=== PATIENT | male | born 1990 | race Caucasian/White ===

== ENCOUNTER 2016-07-11 00:03 | Emergency (ER) | payer MEDICARE, MEDICAID ==
[2016-07-11] MEDS ORDERED: predniSONE 20 MG Tab PO ONE (01:14)
[2016-07-11] MEDS ORDERED: Cetirizine 10 MG Tab PO ONE (01:15)
[2016-07-11 01:34] VITALS: BP 114/72
--- NOTE | 2016-07-12 04:46 | ER ---
DATE SEEN: 07/11/2016 TIME SEEN: The patient was seen at 0020 hours. CHIEF COMPLAINT: Headache, tiredness, lightheadedness, sluggishness, depersonalization, hallucinations, and schizophrenia. HISTORY OF PRESENT ILLNESS: This 26-year-old who lives at home complains of recent increase in headaches, sluggishness, sleeping 18-22 hours a day, "I keep getting sleepy and he perseverated four times at least. I keep getting "sleep induction." He sleeps most of the time. He lives at home with his mother. His sister is with him now. His day is spent watching cartoons and playing with his dog. In the past, he used to watch Walking , but he got bad dreams, consequently stopped watching it. Now he is watching cartoons. Sometimes he has recurrent dreams that people are infected with a virus and they are involved with violence. He does not feel like he is going to be persecuted or killed by these people who are infected by the virus (very similar to the Walking sequels). He has felt mildly cold. He is off Clozaril. He has lost small amount of weight. Denies fever, chills, cough, abdominal pain, chest pain, irregular heartbeats, falling, compromise in his vision. He has occasional headaches. Patient's treatment for schizophrenia has resulted in discontinuation of Clozaril (drug side effects). CURRENT MEDICATIONS: 1. Risperidone 4 mg at bedtime. 2. Clonazepam 0.5 mg q.6 hours. 3. Lorazepam 1.5 mg b.i.d. 4. Prozac 20 mg at bedtime. 5. Aripiprazole 15 mg daily. 6. Venlafaxine (Effexor XR) 75 mg daily. 7. Topiramate 100 mg b.i.d. 8. Prazosin 2 mg at bedtime (he states the prazosin decreases his dreams). 9. Montelukast (Singulair) 10 mg daily. 10.Levothyroxine 125 mcg daily. REVIEW OF SYSTEMS: Negative except for as noted above, mostly psychiatric history. HEENT: He has had marked congestion and denies sore throat. He has mild sinus pressure. PSYCHIATRIC: He has had PTSD, at one time he was seeing things and vicious people and he used to watch horror movies. He was addicted to horror movies, watched specifically even Walking . Now he has resisted from watching these program because of the side effect of the medicine and just watch cartoons and [place] animation cartoons. Sometimes, he does not experience upper body sensation or depersonalization recently. He notes it is very hard for him to get up in the morning. He does sometime go to bed, last night he went to bed, but really did not go to sleep until about 0200 hours and he woke at 1800 hours the following day, he had about approximately 16 hours of sleep. Patient denies constipation. Denies hair loss. Denies temperature intolerance. PHYSICAL EXAM: VITAL SIGNS: Blood pressure 126/70, heart rate 91, respirations 18, oxygen saturation 99%, temperature is 36.8 degrees centigrade. Weight is 113.398 kg. BMI 30.1 kg/m2. GENERAL: Slightly somnolent, slow talking, overweight with body odor (suggesting he has not showered for several days). HEENT: PERRLA intact. Pharynx without abnormality. Mucosa is normal appearance, mild macroglossia. Examination of the nasal turbinates, they are markedly boggy and they almost move juxtaposition of the septal because of the edema of the nasal turbinates, moderate shiners. NECK: No thyromegaly or masses in neck. No cervical adenopathy. LUNGS: Without rales, rhonchi, or wheezes. HEART: S1, S2. No murmur. Sinus rhythm. ABDOMEN: Soft. No guarding. No abdominal discomfort. NEURO: Deep tendon reflexes in upper and lower extremities, symmetrical, but hypoactive lower extremities. Cranial nerves 2 through 12 intact. Oriented x3. Gait intact. Muscle strength intact. Romberg negative. No past pointing. No pronator drift. No decreased strength in upper or lower extremities. DERMIS: Negative. ASSESSMENT: 1. History of excessive dreams that were violent that seemed to be improved with prazosin based on his history. 2. Compliant in taking his medicine, however, he has not seen a psychiatrist for a year. 3. He had used telepsychiatry in the past after he had been seen at [place], but it has been a while since that occurred. 4. Allergic sinusitis and rhinitis. 5. Increased sleep. 6. Schizophrenia, is not on Clozaril, probably the latter help but it probably also had hemopoietic side effects and it was discontinued. 7. He is on a multiplicity of psychiatric medicines and they could be causing problems and needs review of these medicines. PLAN: 1. Treat with prednisone 10 mg daily and then 10 mg every other day for 3 more doses. 2. Follow up with doctor in a week. Zyrtec 10 mg one tablet daily, 30 tablets prescribed. 3. Patient needs further psychiatric evaluation. It has been a while since he has seen his psychiatrist. His medications need to be re-evaluated. /[id number] PRADEEP/JOSIAH
== END 2016-07-11 01:30 | disposition home or self-care (01) ==
LOC: FB.ED 00:03
DX: J30.9 Allergic rhinitis, unspecified (principal); F20.9 Schizophrenia, unspecified; G47.10 Hypersomnia, unspecified
CPT/HCPCS: 36415; 80053; 81001; 84443; 85025; 99283; A9270; 99284

== ENCOUNTER 2016-09-23 01:04 | Emergency (ER) | payer MEDICARE, MEDICAID ==
[2016-09-23 01:51] LABS: ACETAMINOPHEN < 10 ug/mL (10-30)
[2016-09-23 04:46] VITALS: BP 128/60
--- NOTE | 2016-09-23 16:27 | ER ---
DATE SEEN: 09/23/2016 REASON FOR VISIT: Anger. HISTORY OF PRESENT ILLNESS: Po is a 26-year-old male brought in by his sister. Tonight, he got so angry that the sister was worried about what he can do. Mr. Lawrence has a history of schizoaffective disorder, Asperger's disorder, PTSD, and schizophrenia. She feels that his medications have not been working well in the last few weeks and would like him to be admitted to an inpatient facility. Mr. Lawrence denies any suicidal or homicidal ideation. He denies hearing voices. He claims to be sleeping well at night. Tonight, he states that he was frustrated because of not being able to get wi-fi. CURRENT MEDICATIONS: 1. Effexor. 2. Topamax. 3. Risperdal 4 mg a day. 4. Prazosin. 5. Benztropine. 6. Clonazepam. 7. Levothyroxine. ALLERGIES: He is allergic to pollen extracts and sulfa drugs. SOCIAL HISTORY: He denies use of drugs, alcohol, or tobacco. PHYSICAL EXAMINATION: GENERAL: He is pale, but not in any cardiopulmonary distress. VITAL SIGNS: His blood pressure is normal. His pulse is 69 and temp 97.4. ENT: Negative. NECK: Supple. MENTAL STATUS: He is alert. He answers questions well. No signs of denys. He denies homicidal or suicidal ideation convincingly. NEUROLOGIC: No focal findings. Cranial nerves 2 through 12 are grossly intact. LABORATORY DATA: Including acetaminophen and urine drug screen were all negative. Electrolytes were normal. IMPRESSION: 1. Schizophrenia. 2. Post-traumatic stress disorder. PLAN: We initiated a call and transfer to [facility], but after review of the pertinent information, they declined to take the patient as an inpatient. We released the patient after a few hours and advised the sister to take him directly tomorrow to the [facility] for an outpatient evaluation. /[id number] TOMA/JOSIAH
== END 2016-09-23 04:43 | disposition home or self-care (01) ==
LOC: FB.ED 01:04
DX: F25.9 Schizoaffective disorder, unspecified (principal); F43.10 Post-traumatic stress disorder, unspecified; F84.5 Asperger's syndrome; Z79.899 Other long term (current) drug therapy; Z88.2 Allergy status to sulfonamides; Z91.048 Other nonmedicinal substance allergy status
CPT/HCPCS: 36415; 80053; 80305; 81001; 84443; 85025; 99283; G0480

== ENCOUNTER 2016-12-07 03:40 | Emergency (ER) | payer MEDICARE, MEDICAID ==
[2016-12-07 03:53] VITALS: BP 124/68
[2016-12-07] MEDS ORDERED: Polyethylene Glycol 3350 Powder 17 GM Packet PO ONE (04:24)
--- NOTE | 2016-12-07 04:29 | EDM.PDOC ---
ED HPI GENERAL MEDICAL PROBLEM - General Chief Complaint: General Stated Complaint: BLOOD ON HIS RECTUM Time Seen by Provider: 12/07/16 04:15 Source of Information: Reports: Patient History Limitations: Reports: No Limitations - History of Present Illness INITIAL COMMENTS - FREE TEXT/NARRATIVE: 26 yo male first noticed blood with BM's about a week ago. Has not consulted his primary. Tonight the "whole toilet was full of blood". There is no pain with defecation. Had one dizzy spell since this problem began. Denies a hx of constipation. Is not on any anticoagulants. Onset: Gradual Onset Date: 11/30/16 Duration: Day(s):, Getting Worse Quality: Reports: Other (no pain) Severity: Moderate Improves with: Reports: None Worsens with: Reports: Other (BM's/defecation) Context: Reports: Other (unknown) Associated Symptoms: Reports: No Other Symptoms Treatments CORPORATE ATTORNEY: Reports: Other (see below) (none) - Related Data Allergies Allergy/AdvReac Type Severity Reaction Status Date / Time Sulfa (Sulfonamide Allergy Mild Fever Verified 09/23/16 01:30 Antibiotics) pollen extracts Allergy Swollen Verified 09/23/16 01:30 Eyes Home Meds: Home Meds Levothyroxine 125 mcg PO ACBRK 03/25/14 [History] Montelukast [Singulair] 10 mg PO DAILY 03/25/14 [History] Topiramate 100 mg PO BID 03/25/14 [History] ARIPiprazole [Aripiprazole] 15 mg PO DAILY 12/26/15 [History] LORazepam 1.5 tab PO BID 12/26/15 [History] Prazosin HCl [Prazosin] 2 mg PO BEDTIME 12/26/15 [History] Venlafaxine [Effexor XR] 75 mg PO DAILY 12/26/15 [History] Cetirizine [ZyrTEC] 10 mg PO DAILY #30 tab 07/11/16 [Rx] ClonazePAM [KlonoPIN] 0.5 mg PO Q6HR PRN 07/11/16 [History] risperiDONE 4 mg PO BEDTIME 07/11/16 [History] Albuterol Sulfate [Ventolin Hfa] 1 puff INH ASDIRECTED PRN 09/23/16 [History] Benztropine [Cogentin] 0.5 mg PO BID 09/23/16 [History] hydrOXYzine HCl [Atarax] 50 mg PO ASDIRECTED PRN 09/23/16 [History] Past Medical History Respiratory History: Reports: Asthma, Bronchitis, Recurrent, Other (See Below) Other Respiratory History: Allergies. Psychiatric History: Reports: Anxiety, Bipolar, Depression, Hallucinations, Schizophrenia Other Psychiatric History: BORDERLINE DISORDER Endocrine/Metabolic History: Reports: Hypothyroidism Social & Family History - Family History Family Medical History: Noncontributory - Tobacco Use Smoking Status *Q: Never Smoker - Caffeine Use Caffeine Use: Reports: None - Alcohol Use Days Per Week of Alcohol Use: 0 - Recreational Drug Use Recreational Drug Use: No ED ROS GENERAL - Review of Systems Review Of Systems: See Below Constitutional: Reports: No Symptoms HEENT: Reports: No Symptoms Respiratory: Reports: No Symptoms Cardiovascular: Reports: No Symptoms Endocrine: Reports: No Symptoms GI/Abdominal: Reports: Bloody Stool, Hematochezia. Denies: Abdominal Pain, Black Stool, Constipation, Diarrhea, Decreased Appetite, Distension, Melena, Nausea, Vomiting : Reports: No Symptoms Musculoskeletal: Reports: No Symptoms Skin: Reports: No Symptoms Neurological: Reports: No Symptoms Psychiatric: Reports: No Symptoms ED EXAM, GENERAL - Physical Exam Exam: See Below Exam Limited By: No Limitations General Appearance: Alert, WD/WN, No Apparent Distress Eye Exam: Bilateral Eye: Normal Inspection Ears: Normal External Exam, Hearing Grossly Normal Ear Exam: Bilateral Ear: Auricle Normal, Canal Normal Nose: Normal Inspection, Normal Mucosa, No Blood Throat/Mouth: Normal Inspection, Normal Lips, Normal Oropharynx, Normal Voice, No Airway Compromise Head: Atraumatic, Normocephalic Neck: Normal Inspection, Supple Respiratory/Chest: No Respiratory Distress, Lungs Clear, Normal Breath Sounds, No Accessory Muscle Use Cardiovascular: Regular Rate, Rhythm, No Edema GI/Abdominal: Normal Bowel Sounds, Soft, Non-Tender, No Distention Back Exam: Normal Inspection. No: CVA Tenderness (R), CVA Tenderness (L) Extremities: Normal Inspection, Normal Range of Motion, Non-Tender, No Pedal Edema Neurological: Alert, Oriented, CN II-XII Intact, Normal Cognition, No Motor/ Sensory Deficits Psychiatric: Normal Affect, Normal Mood Skin Exam: Warm, Dry, Intact, Normal Color, No Rash Lymphatic: No Adenopathy Course - Vital Signs Text/Narrative:: Orthostatic vitals-borderline Last Recorded V/S: Last Vital Signs Temp 36.8 C 12/07/16 03:50 Pulse 94 12/07/16 03:50 Resp 16 12/07/16 03:50 BP 124/68 12/07/16 03:50 Pulse Ox 99 12/07/16 03:50 - Orders/Labs/Meds Orders: Active Orders 24 hr Category Date Time Status Orthostatic Vital Signs [RC] ASDIRECTED Care 12/07/16 04:23 Ordered HGB [HEMOGLOBIN] [HEME] Stat Lab 12/07/16 04:23 Ordered Polyethylene Glycol 3350 [MiraLAX] Med 12/07/16 04:24 Once 17 gm PO ONETIME ONE Departure - Departure Time of Disposition: 05:01 Disposition: Home, Self-Care 01 Condition: Good Clinical Impression: Bleeding hemorrhoids - Discharge Information Referrals: Thee Díaz MD [Primary Care Provider] - - My Orders Last 24 Hours: My Active Orders 12/07/16 04:23 Orthostatic Vital Signs [RC] ASDIRECTED HGB [HEMOGLOBIN] [HEME] Stat 12/07/16 04:24 Polyethylene Glycol 3350 [MiraLAX] 17 gm PO ONETIME ONE - Assessment/Plan Last 24 Hours: My Active Orders 12/07/16 04:23 Orthostatic Vital Signs [RC] ASDIRECTED HGB [HEMOGLOBIN] [HEME] Stat 12/07/16 04:24 Polyethylene Glycol 3350 [MiraLAX] 17 gm PO ONETIME ONE
== END 2016-12-07 05:05 | disposition home or self-care (01) ==
LOC: FB.ED 03:40
DX: K64.9 Unspecified hemorrhoids (principal); E03.9 Hypothyroidism, unspecified; J45.909 Unspecified asthma, uncomplicated; F32.9 Major depressive disorder, single episode, unspecified; Z88.2 Allergy status to sulfonamides; Z88.0 Allergy status to penicillin; Z79.899 Other long term (current) drug therapy
CPT/HCPCS: 36415; 85018; 99282; A9270; 99284

== ENCOUNTER 2016-12-24 15:06 | Emergency (ER) | payer MEDICARE, MEDICAID ==
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
[2016-12-24] MEDS ORDERED: ClonazePAM 1 MG Tab PO ONE (19:56)
[2016-12-24] MEDS ORDERED: ClonazePAM 1 MG Tab PO STA (19:56)
[2016-12-24 22:07] VITALS: BP 121/69
== END 2016-12-24 20:20 | disposition home or self-care (01) ==
LOC: FB.ED 15:06
DX: R45.850 Homicidal ideations (principal); F99 Mental disorder, not otherwise specified; J45.909 Unspecified asthma, uncomplicated; F41.9 Anxiety disorder, unspecified; E03.9 Hypothyroidism, unspecified; Z88.2 Allergy status to sulfonamides; Z91.048 Other nonmedicinal substance allergy status
CPT/HCPCS: 36415; 80048; 80305; 81001; 85027; 99284; A9270; G0480

== ENCOUNTER 2016-12-25 16:21 | Emergency (ER) | payer MEDICARE, MEDICAID ==
--- NOTE | 2016-12-25 16:39 | EDM.PDOCBH ---
ED HPI GENERAL MEDICAL PROBLEM - General Chief Complaint: Behavioral/Psych Stated Complaint: SUICIDAL IDEATION Time Seen by Provider: 12/25/16 16:30 Source of Information: Reports: Patient, Old Records History Limitations: Reports: No Limitations - History of Present Illness INITIAL COMMENTS - FREE TEXT/NARRATIVE: 26 yo male was seen here in the ER last evening for homicidal ideation. He was cleared medically and psych felt he was no longer a threat and he went home. Today he returns with suicidal ideation. Does not have a plan. Has not yet done anything in an attempt to cause self-harm. Has been hospitalized many times in his life for psychiatric reasons. Is scheduled to see a counselor later this month for the first time, does not have one now. Onset: Today Onset Date: 12/25/16 Onset Time: 08:30 Duration: Hour(s):, Constant Severity: Moderate Improves with: Reports: None Worsens with: Reports: None Context: Reports: Other (Long hx of mental health issues.) Associated Symptoms: Reports: No Other Symptoms Treatments ENERGY BROKER: Reports: Other (see below) (Took a clonazepam that made him sleep for several hrs, after awakening still feels the same. ) throat Pain Score (Numeric/FACES): 6 - Related Data Allergies Allergy/AdvReac Type Severity Reaction Status Date / Time Sulfa (Sulfonamide Allergy Mild Fever Verified 12/25/16 16:38 Antibiotics) pollen extracts Allergy Swollen Verified 12/25/16 16:38 Eyes Home Meds: Home Meds Levothyroxine 175 mcg PO ACBRK 03/25/14 [History] Montelukast [Singulair] 10 mg PO DAILY 03/25/14 [History] Topiramate 100 mg PO BID 03/25/14 [History] Prazosin HCl [Prazosin] 2 mg PO BEDTIME 12/26/15 [History] Venlafaxine [Effexor XR] 150 mg PO DAILY 12/26/15 [History] risperiDONE 4 mg PO BEDTIME 07/11/16 [History] Benztropine [Cogentin] 0.5 mg PO BID 09/23/16 [History] Past Medical History Respiratory History: Reports: Asthma, Bronchitis, Recurrent, Other (See Below) Other Respiratory History: Allergies. Psychiatric History: Reports: Anxiety, Bipolar, Depression, Hallucinations, Schizophrenia Other Psychiatric History: BORDERLINE DISORDER Endocrine/Metabolic History: Reports: Hypothyroidism Social & Family History - Family History Family Medical History: Noncontributory - Tobacco Use Smoking Status *Q: Never Smoker - Caffeine Use Caffeine Use: Reports: None - Alcohol Use Days Per Week of Alcohol Use: 0 - Recreational Drug Use Recreational Drug Use: No ED ROS GENERAL - Review of Systems Review Of Systems: See Below Constitutional: Reports: No Symptoms HEENT: Reports: No Symptoms Respiratory: Reports: No Symptoms Cardiovascular: Reports: No Symptoms GI/Abdominal: Reports: No Symptoms : Reports: No Symptoms Musculoskeletal: Reports: No Symptoms Skin: Reports: No Symptoms Neurological: Reports: No Symptoms Psychiatric: Reports: Depression, Suicidal Ideation Hematologic/Lymphatic: Reports: No Symptoms ED EXAM, BEHAVIORAL HEALTH - Physical Exam Exam: See Below Exam Limited By: No Limitations General Appearance: Alert, WD/WN, No Apparent Distress Eye Exam: Bilateral Eye: Normal Inspection Ears: Normal External Exam, Normal Canal, Hearing Grossly Normal, Normal TMs Nose: Normal Inspection, Normal Mucosa, No Blood Throat/Mouth: Normal Inspection, Normal Lips, Normal Teeth, Normal Oropharynx, Normal Voice, No Airway Compromise Head: Atraumatic, Normocephalic Neck: Normal Inspection, Supple, Non-Tender Respiratory/Chest: No Respiratory Distress, Lungs Clear, Normal Breath Sounds, No Accessory Muscle Use Cardiovascular: Regular Rate, Rhythm, No Edema GI/Abdominal: Normal Bowel Sounds, Soft, Non-Tender, No Distention Back Exam: Normal Inspection. No: CVA Tenderness (R), CVA Tenderness (L) Extremities: Normal Inspection, Normal Range of Motion, Non-Tender, No Pedal Edema Neurological: Alert, Normal Mood/Affect, CN II-XII Intact, Normal Cognition, No Motor/Sensory Deficits, Oriented x 3 Psychiatric: Alert, Normal Affect, Normal Cognition, Flat Affect, Suicidal Thoughts. No: Suicidal Plan Skin Exam: Warm, Dry, Intact, Normal color, No rash COURSE, BEHAVIORAL HEALTH COMP - Course Vital Signs: Last Vital Signs Temp 36.3 C 12/25/16 19:36 Pulse 65 12/25/16 19:36 Resp 18 12/25/16 19:36 BP 113/71 12/25/16 19:36 Pulse Ox 99 12/25/16 19:36 Orders, Labs, Meds: Laboratory Tests 12/25/16 12/25/16 12/25/16 Range/Units 16:50 16:50 16:50 TSH, Ultra Sensitive 1.29 (0.4-5.5) nlU/mL Salicylates < 4.0 L (5.0-25.0) mg/dL Urine Opiates Screen (NEGATIVE) Ur Oxycodone Screen (NEGATIVE) Ur Propoxyphene Screen (NEGATIVE) Acetaminophen < 10 L (10-30) ug/mL Ur Barbituates Screen (NEGATIVE) Ur Tricyclics Screen (NEGATIVE) Ur Phencyclidine Scrn (NEGATIVE) Ur Amphetamine Screen (NEGATIVE) Urine MDMA Screen (NEGATIVE) U Benzodiazepines Scrn (NEGATIVE) U Cocaine Metab Screen (NEGATIVE) U Marijuana (THC) Screen (NEGATIVE) Ethyl Alcohol < 0.01 (<0.01) % 12/25/16 Range/Units 17:04 TSH, Ultra Sensitive (0.4-5.5) nlU/mL Salicylates (5.0-25.0) mg/dL Urine Opiates Screen Negative (NEGATIVE) Ur Oxycodone Screen Negative (NEGATIVE) Ur Propoxyphene Screen Negative (NEGATIVE) Acetaminophen (10-30) ug/mL Ur Barbituates Screen Negative (NEGATIVE) Ur Tricyclics Screen Negative (NEGATIVE) Ur Phencyclidine Scrn Negative (NEGATIVE) Ur Amphetamine Screen Negative (NEGATIVE) Urine MDMA Screen Negative (NEGATIVE) U Benzodiazepines Scrn Negative (NEGATIVE) U Cocaine Metab Screen Negative (NEGATIVE) U Marijuana (THC) Screen Negative (NEGATIVE) Ethyl Alcohol (<0.01) % Departure - Departure Time of Disposition: 23:50 Disposition: DC/Tfer to Psych Hosp/Unit 65 Condition: Good Clinical Impression: Suicidal ideation - Discharge Information Referrals: Thee Díaz MD [Primary Care Provider] - Forms: ED Department Discharge
[2016-12-25 17:13] LABS: ACETAMINOPHEN < 10 ug/mL (10-30)
[2016-12-25 19:37] VITALS: BP 113/71
== END 2016-12-25 23:35 ==
LOC: FB.ED 16:21
DX: R45.851 Suicidal ideations (principal); E03.9 Hypothyroidism, unspecified; J45.909 Unspecified asthma, uncomplicated; F41.9 Anxiety disorder, unspecified; F32.9 Major depressive disorder, single episode, unspecified; Z88.8 Allergy status to other drugs, medicaments and biological substances; Z88.2 Allergy status to sulfonamides; Z79.899 Other long term (current) drug therapy
CPT/HCPCS: 36415; 80305; 84443; 99285; G0480

== ENCOUNTER 2019-02-21 19:49 | Emergency (ER) | payer MEDICAID, MEDICARE ==
[2019-02-21] MEDS: Acetaminophen 500 MG Tab PO ONE (20:24)
--- NOTE | 2019-02-21 20:24 | EDM.PDOC ---
ED HPI GENERAL MEDICAL PROBLEM - General Chief Complaint: Headache Stated Complaint: MIGRAINES Time Seen by Provider: 02/21/19 20:10 Source of Information: Reports: Patient, Family History Limitations: Reports: No Limitations - History of Present Illness INITIAL COMMENTS - FREE TEXT/NARRATIVE: Patient presented to the ED because of headache over the bifrontal area, throbbing,10/10 with some photophobia. He has a h/o migraine and usually takes aleve but this time his headache never went away. he denies any fever,neck stiffness. headache Pain Score (Numeric/FACES): 10 - Related Data Allergies Allergy/AdvReac Type Severity Reaction Status Date / Time Sulfa (Sulfonamide Allergy Mild Fever Verified 12/25/16 16:38 Antibiotics) pollen extracts Allergy Swollen Verified 12/25/16 16:38 Eyes Home Meds: Home Meds Levothyroxine 175 mcg PO ACBRK 03/25/14 [History] Montelukast [Singulair] 10 mg PO DAILY 03/25/14 [History] Topiramate 100 mg PO BID 03/25/14 [History] Prazosin HCl [Prazosin] 2 mg PO BEDTIME 12/26/15 [History] Venlafaxine [Effexor XR] 150 mg PO DAILY 12/26/15 [History] risperiDONE 4 mg PO BEDTIME 07/11/16 [History] Benztropine [Cogentin] 0.5 mg PO BID 09/23/16 [History] Meclizine [Antivert] 50 mg PO Q6H PRN #30 tab 02/21/19 [Rx] Past Medical History HEENT History: Reports: None Cardiovascular History: Reports: None Respiratory History: Reports: Asthma, Bronchitis, Recurrent, Other (See Below) Other Respiratory History: Allergies. Gastrointestinal History: Reports: None Genitourinary History: Reports: None Musculoskeletal History: Reports: None Neurological History: Reports: Seizure Other Neuro History: mother states that patient has a seizure disorder since he was 3-4 years old. Had seizure episode couple months ago. Psychiatric History: Reports: Anxiety, Bipolar, Depression, Hallucinations, Schizophrenia Other Psychiatric History: BORDERLINE DISORDER Endocrine/Metabolic History: Reports: Hypothyroidism Hematologic History: Reports: None Immunologic History: Reports: None Oncologic (Cancer) History: Reports: None Dermatologic History: Reports: None - Infectious Disease History Infectious Disease History: Reports: None - Past Surgical History Head Surgeries/Procedures: Reports: None Male Surgical History: Reports: None Social & Family History - Family History Family Medical History: Noncontributory - Caffeine Use Caffeine Use: Reports: None ED ROS GENERAL - Review of Systems Review Of Systems: See Below Constitutional: Reports: No Symptoms HEENT: Reports: No Symptoms Respiratory: Reports: No Symptoms Cardiovascular: Reports: No Symptoms Endocrine: Reports: No Symptoms GI/Abdominal: Reports: No Symptoms : Reports: No Symptoms Musculoskeletal: Reports: No Symptoms Skin: Reports: No Symptoms Neurological: Reports: Headache Hematologic/Lymphatic: Reports: No Symptoms, Other - Physical Exam Exam: See Below Exam Limited By: No Limitations General Appearance: Alert, WD/WN, No Apparent Distress Eye Exam: Bilateral Eye: PERRL Ears: Normal External Exam, Normal Canal, Hearing Grossly Normal Nose: Normal Inspection, Normal Mucosa, No Blood Throat/Mouth: Normal Inspection, Normal Lips, Normal Teeth, Normal Gums Head Exam: Atraumatic, Normocephalic Neck: Normal Inspection, Supple, Non-Tender, Full Range of Motion Respiratory/Chest: No Respiratory Distress, Lungs Clear, Normal Breath Sounds, No Accessory Muscle Use, Chest Non-Tender Cardiovascular: Normal Peripheral Pulses, Regular Rate, Rhythm, No Edema, No Gallop, No JVD, No Murmur, No Rub GI/Abdominal: Normal Bowel Sounds, Soft, Non-Tender, No Organomegaly, No Distention, No Abnormal Bruit Neuro Exam (Abbreviated): Alert, Oriented, CN II-XII Intact, Normal Cognition, Normal Gait, Normal Reflexes, No Motor/Sensory Deficits Course - Vital Signs Text/Narrative:: toradol 60 mg IM x1 imitrex 6 mg SC x1 percocet 5/325, 2 po x1 dose Last Recorded V/S: Last Vital Signs Temp 36.7 C 02/21/19 22:00 Pulse 74 02/21/19 22:00 Resp 16 02/21/19 22:00 BP 142/94 H 02/21/19 22:00 Pulse Ox 100 02/21/19 22:00 - Orders/Labs/Meds Meds: Medications Discontinued Medications Generic Name Dose Route Start Last Admin Trade Name Ramseyq PRN Reason Stop Dose Admin Acetaminophen 1,000 mg 02/21/19 20:17 02/21/19 20:24 Tylenol Extra Strength PO 02/21/19 20:18 1,000 mg ONETIME ONE Administration Ketorolac Tromethamine 60 mg 02/21/19 20:16 02/21/19 20:25 Toradol IM 02/21/19 20:17 60 mg ONETIME ONE Administration Meclizine HCl 50 mg 02/21/19 20:39 02/21/19 20:44 Antivert PO 02/21/19 20:40 50 mg ONETIME ONE Administration Oxycodone/Acetaminophen 2 tab 02/21/19 21:43 02/21/19 22:03 Percocet 325-5 Mg PO 2 tab ONETIME PRN Administration Headache Sumatriptan Succinate 6 mg 02/21/19 21:03 02/21/19 21:08 Imitrex SUBCUT 02/21/19 21:04 6 mg ONETIME ONE Administration Departure - Departure Time of Disposition: 20:20 Disposition: Home, Self-Care 01 Condition: Good Clinical Impression: Migraine - Discharge Information Prescriptions: Meclizine [Antivert] 50 mg PO Q6H PRN #30 tab PRN Reason: vertigo Instructions: Migraine Headache, [id number] Referrals: Thee Díaz MD [Primary Care Provider] - Forms: ED Department Discharge Additional Instructions: please read discharge instructions on migraine headache take ibuprofen 800 mg with tylenol 1000 mg every 8 hours as needed for pain/ aches Meclizine 50 mg every 6 hours as needed for your vertigo follow up as needed
[2019-02-21] MEDS: Ketorolac 60 MG/2 ML SDV IM ONE (20:25)
[2019-02-21] MEDS: Meclizine 25 MG Tab PO ONE (20:44)
[2019-02-21] MEDS: SUMAtriptan 6 MG/0.5 ML SDV SUBCUT ONE (21:08)
[2019-02-21] MEDS: Acetaminophen/oxyCODONE 325-5 MG Tab PO PRN (22:03)
[2019-02-21 22:26] VITALS: BP 142/94; PULSE 74
== END 2019-02-21 22:05 | disposition home or self-care (01) ==
LOC: FB.ED 19:49
DX: G43.909 Migraine, unspecified, not intractable, without status migrainosus (principal); J45.909 Unspecified asthma, uncomplicated; E03.9 Hypothyroidism, unspecified; Z88.2 Allergy status to sulfonamides; Z88.8 Allergy status to other drugs, medicaments and biological substances; Z79.899 Other long term (current) drug therapy
CPT/HCPCS: 96372; 99284; A9270; J1885; J3030

== ENCOUNTER 2019-12-23 16:04 | Emergency (ER) | payer MEDICARE, OTHER ==
--- NOTE | 2019-12-23 16:34 | EDM.PDOC ---
ED HPI GENERAL MEDICAL PROBLEM - General Chief Complaint: Respiratory Problem Stated Complaint: shortness of breath , cough Time Seen by Provider: 12/23/19 16:15 Source of Information: Reports: Patient, Family History Limitations: Reports: No Limitations - History of Present Illness INITIAL COMMENTS - FREE TEXT/NARRATIVE: pt with known schizophrenia and , asthma and multiple medical problems states he has numbness on the left side of the arms and legs and face, started yesterday , has had same in the past and just got worse able to ambulate, talking well no hectorre has cough, dry mostly but occasionally productive of thick phlegm Onset: Gradual Onset Date: 12/22/19 Onset Time: 08:00 Duration: Getting Worse Location: Reports: Chest Severity: Moderate Improves with: Reports: Rest Worsens with: Reports: Breathing Context: Reports: Activity (was out in restaurant), Sick Contact Associated Symptoms: Reports: Malaise, Shortness of Breath - Related Data Allergies Allergy/AdvReac Type Severity Reaction Status Date / Time Sulfa (Sulfonamide Allergy Mild Fever Verified 12/25/16 16:38 Antibiotics) pollen extracts Allergy Swollen Verified 12/25/16 16:38 Eyes Home Meds: Home Meds Levothyroxine 175 mcg PO ACBRK 03/25/14 [History] Montelukast [Singulair] 10 mg PO DAILY 03/25/14 [History] Topiramate 100 mg PO BID 03/25/14 [History] Prazosin HCl [Prazosin] 2 mg PO BEDTIME 12/26/15 [History] Venlafaxine [Effexor XR] 150 mg PO DAILY 12/26/15 [History] risperiDONE 4 mg PO BEDTIME 07/11/16 [History] Benztropine [Cogentin] 0.5 mg PO BID 09/23/16 [History] Meclizine [Antivert] 50 mg PO Q6H PRN #30 tab 02/21/19 [Rx] Azithromycin [Zithromax] 500 mg PO DAILY #4 tab 12/23/19 [Rx] guaiFENesin [Mucus Relief ER] 600 mg PO BID #30 tab.er.12h 12/23/19 [Rx] Past Medical History HEENT History: Reports: None Cardiovascular History: Reports: None Respiratory History: Reports: Asthma, Bronchitis, Recurrent, Other (See Below) Other Respiratory History: Allergies. Gastrointestinal History: Reports: None Genitourinary History: Reports: None Musculoskeletal History: Reports: None Neurological History: Reports: Seizure Other Neuro History: mother states that patient has a seizure disorder since he was 3-4 years old. Had seizure episode couple months ago. Psychiatric History: Reports: Anxiety, Bipolar, Depression, Hallucinations, Schizophrenia Other Psychiatric History: BORDERLINE DISORDER Endocrine/Metabolic History: Reports: Hypothyroidism Hematologic History: Reports: None Immunologic History: Reports: None Oncologic (Cancer) History: Reports: None Dermatologic History: Reports: None - Infectious Disease History Infectious Disease History: Reports: None - Past Surgical History Head Surgeries/Procedures: Reports: None Male Surgical History: Reports: None Social & Family History - Family History Family Medical History: Noncontributory - Caffeine Use Caffeine Use: Reports: None ED ROS GENERAL - Review of Systems Review Of Systems: See Below Constitutional: Denies: Fever, Chills, Malaise, Weakness HEENT: Reports: Rhinitis Respiratory: Reports: Shortness of Breath, Wheezing, Cough, Sputum. Denies: Hemoptysis Cardiovascular: Reports: No Symptoms Endocrine: Reports: Fatigue GI/Abdominal: Reports: Constipation : Reports: No Symptoms Musculoskeletal: Reports: No Symptoms Skin: Reports: No Symptoms Neurological: Reports: Headache, Numbness (left side), Paresthesia Hematologic/Lymphatic: Reports: Anemia. Denies: Easy Bleeding, Easy Bruising, Swollen Glands ED EXAM, GENERAL - Physical Exam Exam: See Below Exam Limited By: No Limitations General Appearance: Alert, WD/WN, No Apparent Distress, Obese Eye Exam: Bilateral Eye: EOMI Ears: Normal External Exam Ear Exam: Bilateral Ear: TM Dull Nose: Nasal Drainage Throat/Mouth: Normal Inspection, Normal Oropharynx Head: Atraumatic, Normocephalic Neck: Supple, Non-Tender Respiratory/Chest: Decreased Breath Sounds, Wheezing Cardiovascular: Regular Rate, Rhythm GI/Abdominal: Soft, Non-Tender Back Exam: Full Range of Motion Extremities: No Pedal Edema Neurological: Alert, Oriented Psychiatric: Normal Affect Lymphatic: No Adenopathy Course - Orders/Labs/Meds Orders: Active Orders 24 hr Category Date Time Status RT Aerosol Therapy [RC] ASDIRECTED Care 12/23/19 16:46 Active Chest 2V [CR] Stat Exams 12/23/19 16:23 Taken Labs: Laboratory Tests 12/23/19 12/23/19 12/23/19 Range/Units 17:00 17:00 17:00 WBC 8.1 (4.5-12.0) X10-3/uL RBC 4.85 (4.30-5.75) x10(6)uL Hgb 13.8 (13.5-17.8) g/dL Hct 41.3 (30.0-51.3) % MCV 85.2 (80-96) fL MCH 28.4 (27.7-33.6) pg MCHC 33.3 (32.2-35.4) g/dL RDW 12.2 (11.5-15.5) % Plt Count 375 H (125-369) X10(3)uL MPV 6.7 L (7.4-10.4) fL Neut % (Auto) 62.9 (46-82) % Lymph % (Auto) 27.8 (13-37) % Kern % (Auto) 7.4 (4-12) % Eos % (Auto) 1 (1.0-5.0) % Baso % (Auto) 1 (0-2) % Neut # (Auto) 5.2 (1.6-8.3) # Lymph # (Auto) 2.2 (0.6-5.0) # Kern # (Auto) 0.6 (0.0-1.3) # Eos # (Auto) 0.1 (0.0-0.8) # Baso # (Auto) 0.0 (0.0-0.2) # Sodium 142 (135-145) mmol/L Potassium 4.2 (3.5-5.3) mmol/L Chloride 105 (100-110) mmol/L Carbon Dioxide 30 (21-32) mmol/L BUN 13 (7-18) mg/dL Creatinine 1.0 (0.70-1.30) mg/dL Est Cr Clr Drug Dosing TNP Estimated GFR (MDRD) > 60 (>60) BUN/Creatinine Ratio 13.0 (9-20) Glucose 97 (80-116) mg/dL Calcium 8.2 L (8.6-10.2) mg/dL Total Bilirubin 0.3 (0.1-1.3) mg/dL AST 22 (5-25) IU/L ALT 29 (12-36) U/L Alkaline Phosphatase 39 L (56-112) IU/L Total Protein 7.0 (6.0-8.0) g/dL Albumin 3.6 (3.5-5.2) g/dL Globulin 3.4 g/dL Albumin/Globulin Ratio 1.1 TSH, Ultra Sensitive 0.78 (0.36-3.74) IU/mL Meds: Medications Discontinued Medications Generic Name Dose Route Start Last Admin Trade Name Ramseyq PRN Reason Stop Dose Admin Albuterol/Ipratropium 3 ml 12/23/19 16:46 12/23/19 17:14 Duoneb 3.0-0.5 Mg/3 Ml NEB 12/23/19 16:47 3 ml ONETIME ONE Administration Ceftriaxone Sodium 1 gm 12/23/19 17:25 12/23/19 17:40 Rocephin IM 12/23/19 17:26 1 gm ONETIME ONE Administration - Re-Assessments/Exams Free Text/Narrative Re-Assessment/Exam: 12/23/19 17:26 labs done and results discussed with pt and father will need to FU with PCP for other symptoms Departure - Departure Time of Disposition: 17:50 Disposition: Home, Self-Care 01 Clinical Impression: Asthma with exacerbation, Asthmatic bronchitis without complication, Hypothyroidism - Discharge Information *PRESCRIPTION DRUG MONITORING PROGRAM REVIEWED*: Not Applicable *COPY OF PRESCRIPTION DRUG MONITORING REPORT IN PATIENT VONNIE: Not Applicable Prescriptions: guaiFENesin [Mucus Relief ER] 600 mg PO BID #30 tab.er.12h Azithromycin [Zithromax] 500 mg PO DAILY #4 tab Instructions: Acute Bronchitis, Adult Referrals: PCP,None [Ordering Only Provider] - Forms: ED Department Discharge Additional Instructions: Take the prescribed medication as directed. Follow up with your Primary Care Provider as needed. May call if you have any questions or come back to the ER if your symptoms get acutely worse. - My Orders Last 24 Hours: My Active Orders 12/23/19 16:23 Chest 2V [CR] Stat 12/23/19 16:46 RT Aerosol Therapy [RC] ASDIRECTED - Assessment/Plan Last 24 Hours: My Active Orders 12/23/19 16:23 Chest 2V [CR] Stat 12/23/19 16:46 RT Aerosol Therapy [RC] ASDIRECTED
[2019-12-23] MEDS ORDERED: Albuterol/Ipratropium 3.0-0.5 MG/3 ML Neb Soln NEB ONE (16:46)
[2019-12-23] MEDS ORDERED: cefTRIAXone 1 GM Vial IM ONE (17:25)
[2019-12-23 19:42] VITALS: BP 138/76; PULSE 93
== END 2019-12-23 18:10 | disposition home or self-care (01) ==
LOC: FB.ED 16:04
DX: J45.901 Unspecified asthma with (acute) exacerbation (principal); E03.9 Hypothyroidism, unspecified; F41.9 Anxiety disorder, unspecified; F31.9 Bipolar disorder, unspecified; F20.9 Schizophrenia, unspecified; Z88.2 Allergy status to sulfonamides; Z91.09 Other allergy status, other than to drugs and biological substances; Z79.899 Other long term (current) drug therapy
CPT/HCPCS: 36415; 71046; 80053; 84443; 85025; 94640; 96372; 99285; J0696; J7620-GY

== ENCOUNTER 2024-03-06 23:14 | Emergency (ER) | payer MEDICARE, OTHER ==
[2024-03-06] MEDS ORDERED: Ketorolac 30 MG/ML SDV IM ONE (23:33)
[2024-03-06] MEDS ORDERED: Sodium Chloride 0.9% 10 ML Syringe FLUSH PRN (23:36)
[2024-03-06] MEDS: Sodium Chloride 0.9% 1,000 ML IV ONE (23:52)
[2024-03-06] MEDS: Ketorolac 15 MG/ML SDV IVPUSH ONE (23:52)
[2024-03-07 00:06] LABS: BASOPHILS ABSOLUTE AUTO 0.1 x10-3/uL (0.0-0.3); BASOPHILS PERCENT AUTO 0.6 % (0.3-3.8); EOSINOPHILS PERCENT AUTO 0.4 % (0.1-6.8); HEMATOCRIT 42.8 % (38.3-50.1); HEMOGLOBIN 14.9 g/dL (12.9-17.7); LYMPHOCYTES ABSOLUTE AUTO 2.3 x10-3/uL (0.5-4.5); LYMPHOCYTES PERCENT AUTO 25.7 % (15.8-45.3); MEAN CORPUSCULAR HEMOGLOBIN 29.1 pg (27.0-33.3); MEAN CORPUSCULAR HGB CONC 34.9 g/dL (28.7-35.3); MEAN CORPUSCULAR VOLUME 83.5 fL (80.8-98.7); MEAN PLATELET VOLUME 6.7 fL (6.7-11.0); MONOCYTES ABSOLUTE AUTO 0.6 x10-3/uL (0.0-1.2); MONOCYTES PERCENT AUTO 6.5 % (5.5-15.2); NEUTROPHILS ABSOLUTE AUTO 6.1 x10-3/uL (1.7-6.9); NEUTROPHILS PERCENT AUTO 66.8 % (40.3-71.8); PLATELET COUNT,PLT 417 x10(3)uL (117-477); RED BLOOD CELL COUNT 5.13 x10(6)uL (3.90-5.90); RED CELL DISTRIBUTION WIDTH 12.6 % (12.4-15.0); WHITE BLOOD CELL COUNT,WBC 9.1 x10-3/uL (3.2-10.1)
[2024-03-07 00:09] LABS: BLOOD UREA NITROGEN,BUN 11 mg/dL (7-18); BUN/CREATININE RATIO 12.2 (9-20); CARBON DIOXIDE,CO2 29 mmol/L (21-32); CHLORIDE,CL 103 mmol/L (100-110); CREATININE 0.9 mg/dL (0.70-1.30); ESTIMATED GFR 115 mL/min (>60); GLUCOSE RANDOM 102 mg/dL (80-116); POTASSIUM,K 3.9 mmol/L (3.5-5.3); SODIUM,NA 140 mmol/L (135-145)
[2024-03-07 00:16] LABS: A/G RATIO 1.1; ALANINE AMINOTRANSFERASE,ALT 29 U/L (12-36); ALBUMIN 3.7 g/dL (3.5-5.2); ALKALINE PHOSPHATASE 59 IU/L (56-112); ASPARTATE AMNIOTRANSFERASE,AST 17 IU/L (5-25); BILIRUBIN TOTAL 0.1 mg/dL (0.1-1.3); PROTEIN TOTAL,TP 7.2 g/dL (6.0-8.0)
[2024-03-07 01:12] VITALS: BP 145/85; PULSE 80
== END 2024-03-07 00:56 | disposition home or self-care (01) ==
LOC: FB.ED 23:14
DX: K64.9 Unspecified hemorrhoids (principal); J45.909 Unspecified asthma, uncomplicated; E03.9 Hypothyroidism, unspecified; Z88.2 Allergy status to sulfonamides; Z91.048 Other nonmedicinal substance allergy status; Z79.890 Hormone replacement therapy; Z79.899 Other long term (current) drug therapy
CPT/HCPCS: 36415; 74176; 80053; 83690; 85025; 86140; 96361; 96374; 99284; J1885; J7030